=== PATIENT | male | born 1975 | race Caucasian/White ===

== ENCOUNTER 2017-03-01 21:56 | Emergency (ER) | payer OTHER ==
[2017-03-01 22:08] VITALS: BP 161/105; BMI 27.6
[2017-03-01] MEDS ORDERED: ADACEL TDaP IM ONE ×2 (22:54→22:59)
[2017-03-01] MEDS ORDERED: TORADOL 60 MG VIAL IM ONE (22:55)
[2017-03-01] MEDS ORDERED: TORADOL 60 MG VIAL ONE (22:57)
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
--- NOTE | 2017-03-01 23:56 | CT ---
EXAM: CT LUMBAR SPINE WITHOUT CONTRAST INDICATION: Back pain COMPARISION: No priors TECHNIQUE: Axial CT examination of the lumbar spine was performed without intravenous contrast. Coronal and sagi ttal planes were reconstructed using the axial data. FINDINGS: No acute fracture or subluxation. The disc and vertebral body heights are preserved. There is normal alignment of the lumbar spine. The central canal and neural foramen appear patent. The facets are int act and appear otherwise unremarkable. The paraspinal soft tissues are normal. IMPRESSION: Negative CT lumbar spine. Reported By:
--- NOTE | 2017-03-01 23:57 | CT ---
EXAM: CT BRAIN WITHOUT CONTRAST INDICATION: Altercation, attic COMPARISION: No Priors TECHNIQUE: Routine axial CT of the brain was performed without intravenous contrast. FINDINGS: The cerebral and cerebellar cortex are normal. The ventricular system is nondilated. No intra or extr a-axial mass or hemorrhage. The garcia-white junction is preserved. There is no evidence of subacute is chemic change. The basilar cisterns are clear. The skull is intact. The mastoid air cells are clear. IMPRESSION: Normal brain CT examination Reported By:
--- NOTE | 2017-03-01 23:58 | CT ---
EXAM: CT CERVICAL SPINE WITHOUT CONTRAST INDICATION: Altercation, neck pain COMPARISION: No priors TECHNIQUE: Axial CT examination of the cervical spine was performed without intravenous contrast. Coronal and sa gittal planes were reconstructed using the axial data. FINDINGS: There is normal alignment of the cervical vertebral bodies. No fracture or subluxation. The vertebral body heights are preserved and the intervertebral discs appear unremarkable. The facets are intact. The surrounding soft tissues are normal. IMPRESSION: Normal cervical spine CT examination. Reported By:
--- NOTE | 2017-03-02 00:01 | CT ---
EXAM: CT CHEST WITHOUT CONTRAST INDICATION: Left rib pain COMPARISION: No priors for comparison TECHNIQUE: Spiral CT of the chest was performed without contrast. Thin reconstructions in the axial plane were o btained. FINDINGS: The lungs are clear. No lung mass, consolidation, or suspicious pulmonary nodule. There is no evidenc e of bullous disease or pulmonary fibrosis. No pneumothorax or pleural effusion. The heart size is normal. No mediastinal or hilar mass or adenopathy. There is no aortic aneurysm. No pulmonary embolism identified. The regional skeleton is intact. There is a nonobstructing left renal calculus. IMPRESSION: Negative CT examination of the chest. Reported By:
== END 2017-03-02 00:33 | disposition home or self-care (01) ==
LOC: ER 21:56
DX: S00.83XA Contusion of other part of head, initial encounter (principal); S20.20XA Contusion of thorax, unspecified, initial encounter; S30.0XXA Contusion of lower back and pelvis, initial encounter
CPT/HCPCS: 70450; 71250; 72125; 72131; 90471; 96372; 99283; J1885

== ENCOUNTER 2017-03-24 19:43 | Emergency (ER) | payer SELFPAY ==
[2017-03-24 20:09] VITALS: BP 177/110; BMI 27.9
[2017-03-24] MEDS ORDERED: XYLOCAINE 1 % (PLAIN) ONE (20:12)
[2017-03-24] MEDS ORDERED: BACITRACIN ZINC ONE (21:15)
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
[2017-03-24] MEDS: KEFLEX CAP 500 MG PO ONE (21:38)
[2017-03-24] MEDS: MOTRIN TAB 800 MG PO ONE (21:38)
== END 2017-03-24 21:38 | disposition home or self-care (01) ==
LOC: ER 19:56
PROC: 0XQP0ZZ Repair Left Index Finger, Open Approach (ICD-10-PCS; principal; 2017-03-24)
DX: S61.211A Laceration without foreign body of left index finger without damage to nail, initial encounter (principal); W45.8XXA Other foreign body or object entering through skin, initial encounter; Y92.9 Unspecified place or not applicable
CPT/HCPCS: 99282; J2001